=== PATIENT | male | born 2005 | race Caucasian/White ===

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

== ENCOUNTER 2023-02-10 17:43 | Emergency (ER) | payer BC, SELFPAY ==
[2023-02-10 17:45] VITALS: BP 140/82; PULSE 98; RESP 16; TEMP 36.8; O2SAT 98; BMI 31.4
--- NOTE | 2023-02-10 18:29 | W.ED.URI ---
HPI - URI/Sore Throat General: Chief Complaint: Upper Respiratory Infection Stated Complaint: soar throat/rash on left arm Time Seen by Provider: 02/10/23 17:56 History of Present Illness: Patient presents to the ER with complaints of fever again Saturday but is now better but now has a sore throat. Patient also looked at woke up this morning and has a rash on his left forearm. Patient has had strep throat multiple times in the past and thinks he has it again. Review of Systems General: Reports: 10 or more systems reviewed and unremarkable except in HPI and below PFSH ED PFSH: Social History Smoking and tobacco status: never smoked Quit status (tobacco): has quit using tobacco Alcohol intake: never Substance/Drug Use: never Physical Exam Const: COMMON NORMALS: no acute distress, average body habitus, patient oriented x3, no limitations, healthy appearing, alert and well nourished HENMT: COMMON NORMALS: normocephalic, atraumatic, hearing grossly normal bilaterally, external ears normal, Normal external nose present and moist oral mucous membranes HEAD & SCALP: normocephalic and atraumatic NOSE: Normal external nose present EXTERNAL EAR: Yes external ears normal Neck/C-Spine: COMMON NORMALS: full ROM, supple, no meningeal signs, no JVD and Thyroid normal; negative for no lymphadenopathy (Mild cervical anterior lymphadenopathy) THYROID: Thyroid normal Chest: COMMONS NORMALS: normal inspection of the chest and normal palpation of entire chest wall Resp: COMMON NORMALS: normal respiratory effort, No retractions, No use of accessory muscles and clear to auscultation bilaterally AUSCULTATION: clear to auscultation bilaterally Cardio: COMMON NORMALS: no JVD, regular rate, regular rhythm, S1 normal heart sound present, S2 normal heart sound present, No gallops present (Cardio), No clicks present (Cardio), No murmurs present (Cardio) and No rub (Cardio) RATE: regular rate RHYTHM: regular rhythm HEART SOUNDS: S1 normal heart sound present and S2 normal heart sound present GI: COMMON NORMALS: Normal to inspection, nondistended, normoactive bowel sounds present, Soft to palpation, non-tender, No hepatosplenomegaly present and no masses PALPATION: Yes Soft to palpation and Yes No hepatosplenomegaly present : COMMON NORMALS: Yes no CVA tenderness BLADDER/KIDNEY EXAM: Yes no CVA tenderness Back/Pelvis: COMMON NORMALS: no CVA tenderness Neuro: COMMON NORMALS: patient oriented x3 SENSORIUM/ORIENTATION: Yes alert MENINGEAL SIGNS: Yes no meningeal signs Course Vital Signs: Vital signs: Vital Signs Temperature 98.2 F 02/10/23 17:45 Pulse Rate 98 02/10/23 17:45 Respiratory Rate 16 02/10/23 17:45 Blood Pressure 140/82 02/10/23 17:45 Pulse Oximetry 98 02/10/23 17:45 Oxygen Delivery Me thod Room Air 02/10/23 17:45 MDM - URI/Sore Throat Medical Decision Making Patient with fever x24 hours no sore throat no rash. The rash is nondescript fever is gone sore throat is still present but mild. Rapid strep test was negative. Patient will be told that he is got a viral pharyngitis and to use hydrocortisone cream on his arm. Patient is to follow-up with his PCP in approximately 7 days or sooner as needed. Differential Diagnosis Likely viral infection; Unlikely upper respiratory infection, croup, otitis media, sinusitis, bronchitis, influenza or pharyngitis Medical Records I reviewed the patient's medical records. Lab Data I reviewed the patient's lab results. Laboratory Results Group A Strep Rapid Negative (Negative) 02/10/23 18:18 No radiology studies performed this visit Discharge Plan Discharge Patient Disposition: Home Clinical Impression: Rash Pharyngitis Qualifiers: Pharyngitis/tonsillitis etiology: unspecified etiology Qualified Code(s): J02.9 - Acute pharyngitis, unspecified Condition: Stable Prescriptions: No Action famotidine [[facility] (famotidine)] 20 mg tablet 20 mg PO BID 28 Days Qty: 56 0RF amoxicillin 500 mg tablet 500 mg PO TID 10 Days Qty: 30 0RF Discharge Orders: Discharge ED (Routine); Ordered 02/10/23 Ordered By: Roderick Huber Patient Instructions: Pharyngitis in Children (ED), Rash - Nonspecific Activity Restrictions/Additional Instructions: Please use [id number] hydrocortisone cream twice a day on your rash as needed until resolved. Your rapid strep test was negative your throat is probably viral. Please follow-up with your family practice doctor in 7 days or sooner as needed. Coding Level of Care Code ED Ship'S Master for Sultana Ramos
[2023-02-10 18:34] LABS: Rapid Strep A Test Negative (Negative)
[2023-02-10 18:47] VITALS: BP 128/67; PULSE 95; RESP 16; O2SAT 99
[2023-02-10 18:49] VITALS: O2SAT 99
[2023-02-10 18:50] VITALS: BP 128/67; PULSE 95; RESP 16; O2SAT 99
== END 2023-02-10 18:50 | disposition home or self-care (01) ==
PROVIDERS: Emergency Provider Emergency Medicine
DX: R21 Rash and other nonspecific skin eruption (principal); J02.9 Acute pharyngitis, unspecified; Z87.891 Personal history of nicotine dependence
CPT/HCPCS: 87081; 87880; 99283

== ENCOUNTER 2023-02-12 08:01 | Emergency (ER) | payer BC, SELFPAY ==
[2023-02-12 08:09] VITALS: BP 147/94; PULSE 90; RESP 18; TEMP 37.2; O2SAT 100; BMI 31.4
--- NOTE | 2023-02-12 08:15 | ED_ITS ---
HPI - General Adult General: Chief complaint: Skin/Abscess/Foreign Body Stated complaint: rash Time Seen by Provider: 02/12/23 08:05 Source: patient Mode of arrival: ambulatory History of Present Illness: 18-year-old male presents emergency room with rash on the lower extremities and somewhat on the last involved on the trunk. His rate is nonpruritic. He has not had any fever sweats chills had is a sore throat recently was seen here in emergency room. His medication list includes amoxicillin but evidently that is not old prescription. He is not currently taking anything has been using some [id number] remedies and topical hydrocortisone. Rapid strep at last visit was negative. He has not had any fever sweats chills no pruritus. No abnormal bleeding or bruising that he has noticed. Onset (ago): day(s) Location: chest, back, abdomen and lower extremity Severity: mild Relieving factors: none Exacerbating factors: other Associated symptoms: Reports rash; Deny chest pain, confusion, cough, diaphoresis, decreased appetite, dyspnea, fe vers/chills, headache(s), malaise, nausea, palpitations, seizures, short of breath, syncope, vomiting or weakness Treatments prior to arrival: none Review of Systems Const: Denies: malaise or diaphoresis ENMT: Denies: throat pain, ear or mastoid pain, nasal discharge or nasal congestion Card: Denies: chest pain, palpitations or syncope Resp: Denies: dyspnea GI: Denies: nausea or vomiting : Denies: flank pain, dysuria, urinary frequency or urinary urgency Skin/Breast: Reports: rash and erythema; Denies: pruritus Neuro: Denies: headache(s) or confusion [facility] ED PFSH: Social History Smoking and tobacco status: never smoked Quit status (tobacco): has quit using tobacco Alcohol intake: never Substance/Drug Use: never Physical Exam 2 Const: COMMON NORMALS: no acute distress GENERAL APPEARANCE: cooperative and comfortable ORIENTATION/CONSCIOUSNESS: Yes awake, Yes oriented to person, Yes oriented to place and Yes oriented to time HENMT: COMMON NORMALS: normocephalic, atraumatic, hearing grossly normal bilaterally, external ears normal, EAC's normal, TM's normal bilaterally and Normal nasal mucous membranes and turbinates present HEAD & SCALP: normocephalic and atraumatic NOSE: Normal nasal mucous membranes and turbinates present EXTERNAL EAR: Yes external ears normal EXTERNAL AUDITORY CANAL: EAC's normal TYMPANIC MEMBRANE: TM's normal bilaterally Eye: COMMON NORMALS: Equal, round and reactive pupils present, EOMs intact bilaterally, conjunctivae normal and no scleral icterus CONJUNCTIVA: Yes conjunctivae normal PUPIL: Yes Equal, round and reactive pupils present Neck/C-Spine: COMMON NORMALS: full ROM, no lymphadenopathy, supple and no JVD Lymph: LYMPHATIC: no lymphadenopathy noted and no lymphedema noted Resp: COMMON NORMALS: normal respiratory effort, No retractions, No use of accessory muscles and clear to auscultation bilaterally AUSCULTATION: clear to auscultation bilaterally Cardio: COMMON NORMALS: no JVD, regular rate, regular rhythm and No murmurs present (Cardio) RATE: regular rate RHYTHM: regular rhythm GI: COMMON NORMALS: Soft to palpation and No hepatosplenomegaly present AUSCULTATION: Yes normoactive bowel sounds PALPATION: Yes Soft to palpation, No Tenderness to palpation present (GI), No Guarding due to palpation present (GI) and Yes No hepatosplenomegaly present Extremity: COMMON NORMALS: normal to inspection, capillary refill normal, no clubbing, cyanosis or edema, no calf tenderness and no pedal edema Neuro: SENSORIUM/ORIENTATION: Yes oriented to person, Yes oriented to place and Yes oriented to time Skin: OTHER: Mildly reddened rash most concentrated in lower extremities worse on the back and lower torso. No petechiae no evidence of vesicles or drainage. No excoriation. Course Vital Signs: Vital signs: Vital Signs Temperature 98.9 F 02/12/23 08:09 Pulse Rate 90 02/12/23 09:15 Respiratory Rate 18 02/12/23 09:15 Blood Pressure 147/94 02/12/23 09:15 Pulse Oximetry 100 02/12/23 09:15 MDM - General Adult Medical Decision Making Discharge home on oral steroids if not improving may need further lab work including CBC CMP if worsens or changes return No radiology studies performed this visit Discharge Plan Discharge Patient Disposition: Home Clinical Impression: Rash Condition: Stable Prescriptions: No Action No Known Home Medications Discharge Orders: Discharge ED (Routine); Ordered 02/12/23 Ordered By: Dre Jefferson Referrals: Starr Gallegos PA-C [Primary Care Provider] - Discharge Diet: Usual diet Discharge Activity: Increase activity as tolerated Patient Instructions: Opioid Safety, Pain Management Stand Alone Forms: Work/School Release Coding Level of Care Code ED Director Cardiovascular for Sultana Ramos
[2023-02-12] MEDS: dexamethasone 10 mg/mL INJ IM (09:11)
[2023-02-12 09:15] VITALS: BP 147/94; PULSE 90; RESP 18; O2SAT 100
== END 2023-02-12 09:18 | disposition home or self-care (01) ==
PROVIDERS: Emergency Provider Family Medicine; PCP Physician Assistant
DX: R21 Rash and other nonspecific skin eruption (principal); Z87.891 Personal history of nicotine dependence
CPT/HCPCS: 96372; 99284; J1100

== ENCOUNTER → 2023-08-03 12:50 | Outpatient (BNVA) | payer BC, SELFPAY | PROVIDERS: PCP Physician Assistant; Visit Provider Emergency Medicine | DX: R68.89 Other general symptoms and signs (principal); J20.8 Acute bronchitis due to other specified organisms; B96.89 Other specified bacterial agents as the cause of diseases classified elsewhere | CPT/HCPCS: 87400; 87426 ==

== ENCOUNTER 2024-04-11 09:05 | Emergency (ER) | payer BC, OTHER, SELFPAY ==
[2024-04-11 09:11] VITALS: BP 152/82; PULSE 96; RESP 17; TEMP 36.5; O2SAT 96; BMI 30.1
--- NOTE | 2024-04-11 09:23 | ECG_ITS ---
[facility]: 2024-04-11 Pat Name: Ifeanyi Villaseñor Department: Room: Gender: Male Resident Services Supervisor: : 2005 Requested By: Dre Alaniz Order Number: [id number] Soheila MD: JULIANNA EARLY Measurements Intervals [place] Rate: 95 P: 52 TX: 150 QRS: 76 QRSD: 105 T: 30 QT: 331 QTc: 418 Interpretive Statements SINUS RHYTHM Compared to ECG 03/11/2017 07:26:34 No significant changes Electronically Signed On 04-13-2024 19:28:00 PAROLE DIRECTOR by JULIANNA EARLY [email or web address]
--- NOTE | 2024-04-11 09:33 | ED_ITS ---
HPI - Skin/Abscess/Foreign Bdy General: Chief complaint: Skin/Abscess/Foreign Body Stated complaint: possible allergic reation Time Seen by Provider: 04/11/24 09:28 History of Present Illness: 19-year-old male presents emergency room presents the emergency room after developing bumps all over his body and rash numbness and tingling this was all transiently also states a lot of itching around his ankles most of the symptoms have resolved. He has a residual close the breathing this all occurred shortly after he took a shower and went to bed. No wheezing. No previous history of allergic reactions. Associated symptoms: Deny chills or fever(s) Related Data Previous Rx's Medication Instructions Recorded cetirizine 10 mg tablet 10 mg PO BID #20 tabs 04/11/24 methylprednisolone 4 mg tablets in See Rx Instructions PO .COMPLEX 04/11/24 a dose pack (Medrol (Tony)) #21 ea Allergies Allergy/AdvReac Type Severity Reaction Status Date / Time No Known Allergies Allergy Verified 08/03/23 12:42 Review of Systems Const: Denies: fever(s) or chills Card: Denies: chest pain Resp: Denies: dyspnea GI: Denies: abdominal pain : Denies: dysuria, urinary frequency or urinary urgency Musc: Denies: neck pain or back pain Skin/Breast: Reports: rash and erythema PFSH ED PFSH: Social History Smoking and tobacco/nicotine status: never used tobacco/nicotine Quit status (tobacco/nicotine): has quit using Alcohol intake: never Substance/Drug Use: never Physical Exam Const: COMMON NORMALS: no acute distress GENERAL APPEARANCE: cooperative and comfortable ORIENTATION/CONSCIOUSNESS: Yes awake, Yes oriented to person, Yes oriented to place and Yes oriented to time HENMT: COMMON NORMALS: normocephalic, atraumatic and hearing grossly normal bilaterally HEAD & SCALP: normocephalic and atraumatic Resp: COMMON NORMALS: normal respiratory effort, No retractions, No use of accessory muscles and clear to auscultation bilaterally AUSCULTATION: clear to auscultation bilaterally Cardio: COMMON NORMALS: regular rate, regular rhythm and No murmurs present (Cardio) RATE: regular rate RHYTHM: regular rhythm GI: COMMON NORMALS: Soft to palpation and No hepatosplenomegaly present AUSCULTATION: Yes normoactive bowel sounds PALPATION: Yes Soft to palpation, No Tenderness to palpation present (GI), No Guarding due to palpation present (GI) and Yes No hepatosplenomegaly present Extremity: COMMON NORMALS: normal to inspection, capillary refill normal, no clubbing, cyanosis or edema, no calf tenderness and no pedal edema Neuro: SENSORIUM/ORIENTATION: Yes oriented to person, Yes oriented to place and Yes oriented to time Skin: OTHER: Very slight erythema of the upper chest and shoulders with no urticarial wheal or hive the rest of the torso and extremities do not have any rash no rash on the face or neck. No rash on the skin suggestive of a contact dermatitis or clothing pattern Course Vital Signs: Vital signs: Vital Signs Temperature 97.7 F 04/11/24 09:11 Pulse Rate 96 04/11/24 09:11 Respiratory Rate 17 04/11/24 09:11 Blood Pressure 152/82 04/11/24 09:11 Pulse Oximetry 96 04/11/24 09:11 Oxygen Delivery Me thod Room Air 04/11/24 09:11 MDM - Skin/Abscess/Foreign Bdy Medicial Decision Making On exam no distress no respiratory issues. Very slight residual rash on the upper torso around the shoulders and neck upper chest upper back but no on the rest of the torso or extremities. Patient given Solu-Medrol and diphenhydramine discharged home cetirizine 10 mg twice daily steroid taper to begin tomorrow follow-up as needed return if it is worsening change symptoms No radiology studies performed this visit Discharge Plan Discharge Patient Disposition: Home Clinical Impression: Contact dermatitis Condition: Stable Prescriptions: New methylprednisolone [Medrol (Tony)] 4 mg tablets,dose pack See Rx Instructions .ROUTE .COMPLEX Qty: 21 0RF Rx Instructions: orally per package directions cetirizine 10 mg tablet 10 mg PO BID Qty: 20 0RF Discharge Orders: Discharge ED (Routine); Ordered 04/11/24 Ordered By: Dre Jefferson Patient Instructions: Allergic Reaction, Contact Dermatitis (ED), Opioid Safety, Pain Management Activity Restrictions/Additional Instructions: Thank you for choosing [facility] for your healthcare needs today. It is very important that you follow up as instructed or that you return to the Emergency Department should you have concerns or if your condition changes or worsens in any way. You are seen in the emergency room after developing a skin rash. It is difficult to say exactly what may have caused this. Most of the rash seems to have resolved by the time we seen in the emergency room. You were given steroids and antihistamine in the emergency room recommend you start a oral steroid taper tomorrow. I also recommend [id number] cetirizine 10 mg 1 pill twice a day for 7 to 10 days. If your symptoms worsen or change recheck Coding Level of Care Code ED [employer] Worker for Sultana Ramos
[2024-04-11 10:51] VITALS: BP 139/77; PULSE 96; O2SAT 97
== END 2024-04-11 10:54 | disposition home or self-care (01) ==
PROVIDERS: Emergency Provider Family Medicine
DX: L25.9 Unspecified contact dermatitis, unspecified cause (principal)
CPT/HCPCS: 93005; 99283